=== PATIENT | male | born 2000 | race Caucasian/White ===

== ENCOUNTER 2019-04-06 18:43 | Emergency (ER) | payer OTHER ==
[~2019-04-06] VITALS: Ht 170.2 cm; Wt 61.4 kg
[2019-04-06] MEDS ORDERED: KETAMINE HCL 50 MG/ML 10 ML VIAL IVP ONE (19:15)
[2019-04-06] MEDS ORDERED: LIDOCAINE 1% 10 ML VIAL INJ ONE (19:45)
[2019-04-06] MEDS ORDERED: KETAMINE HCL 50 MG/ML 10 ML VIAL ONE (19:49)
[2019-04-06] MEDS ORDERED: SODIUM CHLORIDE 0.9% 1,000 ML IV ONE (19:54)
[2019-04-06 21:00] VITALS: BP 133/75
== END 2019-04-06 21:27 | disposition home or self-care (01) ==
LOC: EMS 18:45
DX: S43.014A Anterior dislocation of right humerus, initial encounter (principal); W22.8XXA Striking against or struck by other objects, initial encounter; Y93.71 Activity, boxing; Y92.89 Other specified places as the place of occurrence of the external cause; Y99.8 Other external cause status
CPT/HCPCS: 23650; 73030; 99285; J3490 ×2; J7030

== ENCOUNTER 2019-04-08 16:44 | Emergency (ER) | payer OTHER ==
[~2019-04-08] VITALS: Ht 170.2 cm; Wt 61.4 kg
[2019-04-08] MEDS ORDERED: KETOROLAC TROMETHAMINE 30 MG/ML VIAL IVP ONE (17:30)
[2019-04-08] MEDS ORDERED: HYDROmorphone 2 MG/ML SYRINGE IVP ONE ×2 (17:30→18:30)
[2019-04-08] MEDS ORDERED: ONDANSETRON HCL 4 MG/2 ML VIAL IVP ONE (17:30)
[2019-04-08 20:02] VITALS: BP 118/69
== END 2019-04-08 20:31 | disposition home or self-care (01) ==
LOC: EMS 16:44
DX: S43.014A Anterior dislocation of right humerus, initial encounter (principal); X58.XXXA Exposure to other specified factors, initial encounter; Y93.89 Activity, other specified; Y92.89 Other specified places as the place of occurrence of the external cause; Y99.0 Civilian activity done for income or pay
CPT/HCPCS: 23650; 73030; 73040; 96374; 96375; 96376; 99284; J1170; J1885; J2405

== ENCOUNTER 2019-04-26 11:21 | Emergency (ER) | payer OTHER ==
[~2019-04-26] VITALS: Ht 170.2 cm; Wt 60.0 kg
[2019-04-26] MEDS ORDERED: IBUPROFEN 600 MG TABLET PO ONE (14:30)
[2019-04-26 14:49] VITALS: BP 116/65
== END 2019-04-26 14:49 | disposition home or self-care (01) ==
LOC: EMS 11:23
DX: M24.411 Recurrent dislocation, right shoulder (principal)
CPT/HCPCS: 23650; 29240